=== PATIENT | male | born 1980 | race Caucasian/White ===

== ENCOUNTER 2019-06-15 16:56 | Emergency (ER) | payer OTHER, SELFPAY ==
[2019-06-15 17:20] VITALS: BP 137/80; PULSE 96; RESP 16; TEMP 36.8; O2SAT 100
--- NOTE | 2019-06-15 17:21 | ED_ITS ---
HPI - Wound/Laceration General Chief Complaint: Wound/Laceration Stated Complaint: skin abscess/left wrist History of Present Illness HPI narrative: This is a 38 year old who states that he had a ingrown hair and he pulled it . Patient states that it was hurting and swellled upp and seemed like it wanted to drain so he cut it with a knife. Patient has a past medical history of IV drug use . Related Data Home Medications Medication Instructions Recorded Confirmed buprenorphine-naloxone tablet SUBLINGUAL 06/15/19 Allergies Allergy/AdvReac Type Severity Reaction Status Date / Time No Known Allergies Allergy Unverified 12/07/13 19:56 Review of Systems Review of Systems: Narrative: CONSTITUTIONAL: Denies fever, chills, or sweats. EYES: Denies visual changes, redness, or discharge. ENT: Denies rhinorrhea, congestion, sore throat, or otalgia. CARDIOVASCULAR:Denies chest pain, palpitations, or edema. RESPIRATORY: Denies cough or dyspnea. GASTROINTESTINAL: Denies abdominal pain, nausea, vomiting, or diarrhea. GENITOURINARY: Denies dysuria or hematuria. SKIN:[Denies rash or itching. Reports swollen area and drainage left arm MUSCULOSKELETAL:Denies back pain, joint pain, or myalgia. NEUROLOGIC: Denies headache, numbness, or weakness. PSYCHIATRIC:Denies anxiety or depression PMFSH Comments At time as signature, I have reviewed and agree with nursing past medical, social, surgical and family history. Please see nursing chart for further information. There is no relevant family history pertinent to the presenting complaint. Exam 2 Narrative: Exam Narrative: GENERAL:Well-appearing, well-nourished, and in no acute distress. HEAD:Normocephalic, atraumatic. EYES: PERRLA and EOMI. ENT: Nares clear, no rhinorrhea or epistaxis. Mucous membranes moist. NECK: Supple. CHEST: Clear to auscultation. No respiratory distress. HEART: Regular rate and rhythm. No murmur heard. Normal peripheral pulses. ABDOMEN: Soft, nontender, nondistended, normal active bowel sounds. EXTREMITIES: Normal range of motion. left arm edema. abscess noted with edema and angry looking erythema with yellowish drainage noted SKIN: Warm, dry, no rash. NEURO: No focal deficits. Alert and oriented x3. MDM - Wound/Laceration MDM Narrative Medical decision making narrative: Patient is a high risk for MRSA IV drug user given two po antibiotics to ensure we are covering everything. Differential Diagnosis Differential diagnosis: Likely abscess and other Discharge Plan Discharge Clinical Impression: Cellulitis of arm, left Patient Disposition: Home, Self-Care Condition: Stable Instructions: Antibiotic Form, Cellulitis (ED), Acute Wounds (ED) Additional Instructions: Make sure that you keep the area clean and and take all the medication that is ordered for you . Prescriptions: New sulfamethoxazole-trimethoprim [Bactrim DS] 800-160 mg tablet 1 tablet PO Q12H 10 Days Qty: 20 RF: 0 amoxicillin-pot clavulanate [Augmentin] 875-125 mg tablet 1 tablet PO Q12H 10 Days Qty: 20 RF: 0 No Action buprenorphine-naloxone 8-2 mg tablet, sublingual SUBLINGUAL RF: 0 Follow-up/Referrals: UNKNOWN,DOCTOR [Primary Care Provider] - Time of Disposition: 17:39
--- NOTE | 2019-06-15 17:37 | PC.NURSE ---
wound cx obtained from left lower arm wound.
== END 2019-06-15 17:42 | disposition home or self-care (01) ==
PROVIDERS: Emergency Provider Nurse Practitioner Family
DX: L03.114 Cellulitis of left upper limb (principal)
CPT/HCPCS: 87070; 87147; 87186; 87205; 99213; G0463

== ENCOUNTER 2020-06-06 15:27 | Emergency (ER) | payer OTHER, SELFPAY ==
--- NOTE | ~2020-06-06 | XR_ITS ---
EXAMINATION: XR foot LT min 3V DATE: 06/06/2020 15:59 INDICATION: Left foot pain, initial encounter TECHNIQUE: Dorsoplantar, lateral, and 2 oblique views of the left foot were obtained. COMPARISON: None. FINDINGS: There is a lucency in either the proximal aspect of the medial cuneiform or the distal aspe ct of the navicular seen on one oblique view. No additional osseous abnormality is identified. There is dorsal soft tissue swelling of the foot. The joint spaces are maintained. IMPRESSION: 1. Lucency in either the distal navicular or proximal medial cuneiform suspicious for nondisplaced fr acture. Reviewed, dictated and finalized at location A. IMPRESSION: 1. Lucency in either the distal navicular or proximal medial cuneiform suspicio us for nondisplaced fracture.
[2020-06-06 15:47] VITALS: BP 133/80; PULSE 112; RESP 16; TEMP 36.4; O2SAT 99
--- NOTE | 2020-06-06 15:54 | ED.GENADULT ---
HPI - General Adult General Chief complaint: Wound/Laceration Stated complaint: left ankle pain/left arm infection Time Seen by Provider: 06/06/20 15:55 Source: patient Mode of arrival: ambulatory Limitations: no limitations History of Present Illness HPI narrative: 39-year-old male patient presents to the [facility] with complaints of a wound to the left arm and left foot pain. Patient states today he jumped a fence and landed flat-footed and now having pain and swelling to the left heel. Patient is coming in with crutches stating that he cannot put pressure on the foot when he walks. Denies any numbness or tingling to the toes denies any pain to the ankle, knee or hip. Patient does admit to shooting up fentanyl 3 days ago and states for the last 2 days the left AC has been red swollen and painful. Denies fevers, body aches or chills. Patient states he does admit to shooting up methamphetamines as well but nothing recently. Patient states he has been sweating lately but denies fevers, chills or body aches. Related Data Home Medications Medication Instructions Recorded Confirmed No Home Medications 06/06/20 06/06/20 Allergies Allergy/AdvReac Type Severity Reaction Status Date / Time No Known Allergies Allergy Unverified 06/06/20 15:32 Review of Systems Review of Systems: Narrative: CONSTITUTIONAL: Denies fever, chills, positive sweats. EYES: Denies visual changes, redness, or discharge. ENT: Denies rhinorrhea, congestion, sore throat, or otalgia. CARDIOVASCULAR: Denies chest pain, palpitations, or edema. RESPIRATORY: Denies cough or dyspnea. GASTROINTESTINAL: Denies abdominal pain, nausea, vomiting, or diarrhea. GENITOURINARY: Denies dysuria or hematuria. SKIN: Denies rash or itching. Positive redness/wound to left antecubital area x2 days MUSCULOSKELETAL: Denies back pain, joint pain, or myalgia. Positive left heel pain NEUROLOGIC: Denies headache, numbness, or weakness. PSYCHIATRIC: Denies anxiety or depression. [facility] Past Medical History Medical History (Updated 06/06/20 @ 16:16 by JANNETH Arriaga) Fractures Right ankle Herniated disc Opioid use Was weaned with Suboxone Substance abuse Hydrocodone Exam Narrative: Exam Narrative: GENERAL: Well-appearing, well-nourished, and in no acute distress. HEAD: Normocephalic, atraumatic. EYES: PERRLA and EOMI. ENT: Nares clear, no rhinorrhea or epistaxis. Mucous membranes moist. NECK: Supple. No lymphadenopathy CHEST: Clear to auscultation. No respiratory distress. HEART: Regular rate and rhythm. No murmur heard. Normal peripheral pulses. ABDOMEN: Soft, nontender, nondistended, normal active bowel sounds. EXTREMITIES: Patient has a scabbed over area with surrounding erythema noted to the left antecubital area. The left lower arm does have tightening of the skin, as well as edema that goes all the way to the hand. Patient has good range of motion to the hand and wrist. No erythema or warmth present to the hand. Patient does have some warmth and tenderness around the antecubital area. Radial pulses present. Patient also complaining of left heel pain. Patient does have some swelling and tenderness noted to the calcaneus area of the left heel. No tenderness to the lateral or medial malleolus. No tenderness to the toes. Patient has good DP pulses.. SKIN: Warm, dry, no rash. NEURO: No focal deficits. Alert and oriented x3. Course Reevaluation(s) Reevaluation #1: Reevaluated patient notified him that it does appear that his foot is broken according to the x-ray. We will go ahead and put him in a splint and have him follow-up with the orthopedic surgeon which I will refer him to today. He will need to call the office tomorrow to schedule a follow appointment. Discussed with patient we are going to send him to the ER to be evaluated for possible IV antibiotics for the left lower arm infection. Patient verbalized understanding of this denies any other ques
== END 2020-06-06 16:28 | disposition short-term general hospital (02) ==
PROVIDERS: Emergency Provider Nurse Practitioner Family
DX: L03.114 Cellulitis of left upper limb (principal); S92.902A Unspecified fracture of left foot, initial encounter for closed fracture; X50.9XXA Other and unspecified overexertion or strenuous movements or postures, initial encounter
CPT/HCPCS: 29515; 73630; 99213; 99214; G0463

== ENCOUNTER 2020-06-06 18:02 | Observation (INO) | payer BC, OTHER, SELFPAY ==
--- NOTE | ~2020-06-06 | CT_ITS ---
EXAMINATION: CT UE LT w con INDICATION: Left arm swelling, drug use TECHNIQUE: Computed tomographic images of the left upper extremity were obtained after the administra tion of 100 cc of Omnipaque 350 intravenous contrast. The dose-length product (DLP) was 113.48 mGy-cm . Automated exposure control and iterative reconstruction technique were employed. COMPARISON: None FINDINGS: There is soft tissue gas in the antecubital fossa. No associated rim-enhancing fluid is clay ntified. There is a large amount of subcutaneous edema of the visualized left upper extremity. Bone a lignment is normal. There is no fracture. There is an 8 mm linear metallic density in the subcutaneou s tissues of the radial aspect of the proximal forearm (axial images 33 through 37). There appears to be short segmental thrombosis of several superficial forearm veins. IMPRESSION: 1. Subcutaneous gas in the antecubital fossa without associated abscess, likely related to injection. 2. Linear metallic density in the subcutaneous tissues at the radial aspect of the proximal forearm, possible needle fragment. 3. Findings suggestive of short segmental thrombosis of several superficial forearm veins, likely seq uela of injections. 4. Diffuse cellulitis of the upper extremity. Reviewed, dictated and finalized at location A. IMPRESSION: 1. Subcutaneous gas in the antecubital fossa without associated abscess, likely related to injection. 2. Linear metallic density in the subcutaneous tissues at the radial aspect of the proximal forearm, possible needle fragment. 3. Findings suggestive of short segmental thrombosis of several superficial for earm veins, likely sequela of injections. 4. Diffuse cellulitis of the upper extremity.
[2020-06-06 18:04] VITALS: BP 146/85; PULSE 105; RESP 20; TEMP 36.7; O2SAT 100
--- NOTE | 2020-06-06 18:46 | ED.WOUNDLAC ---
HPI - Wound/Laceration General Chief Complaint: Wound/Laceration <Mason Elizalde MD - Last Filed: 06/06/20 19:07> Stated Complaint: left arm infection, left heel injury <Mason Elizalde MD - Last Filed: 06/06/20 19:07> Time Seen by Provider: 06/06/20 18:31 <Mason Elizalde MD - Last Filed: 06/06/20 19:07> Source: patient <Mason Elizalde MD - Last Filed: 06/06/20 19:07> Mode of arrival: ambulatory <Mason Elizalde MD - Last Filed: 06/06/20 19:07> Limitations: no limitations <Mason Elizalde MD - Last Filed: 06/06/20 19:07> History of Present Illness HPI narrative: 39-year-old male Habitual fentanyl/heroin user Last use was 3 or 4 days ago in his left antecubital Patient reports he did not think that he missed the vein but he has had pain swelling and redness starting about a day later and now has a draining lesion Has not had a fever although he has been told that he was sweating at night Additionally today he tried to hop over a fence and landed on his left foot and has a midfoot fracture which was found and splinted in urgent care before he was referred here <Mason Elizalde MD - Last Filed: 06/06/20 19:07> Related Data Home Medications: Home Medications Medication Instructions Recorded Confirmed No Home Medications 06/06/20 06/06/20 <Mason Elizalde MD - Last Filed: 06/06/20 19:07> Allergies/Adverse Reactions: Allergies Allergy/AdvReac Type Severity Reaction Status Date / Time No Known Allergies Allergy Unverified 06/06/20 15:32 <Mason Elizalde MD - Last Filed: 06/06/20 19:07> Review of Systems Review of Systems: All systems reviewed & are unremarkable except as noted in HPI and below <Mason Elizalde MD - Last Filed: 06/06/20 19:07> Constitutional: Constitutional: Denies chills, Denies fever(s) and Denies headache(s) <Mason Elizalde MD - Last Filed: 06/06/20 19:07> Comments: + Sweats <Mason Elizalde MD - Last Filed: 06/06/20 19:07> ENT: Denies headache(s) and Denies sore throat <Mason Elizalde MD - Last Filed: 06/06/20 19:07> Cardiovascular: Cardiovascular: Denies chest pain, Denies rapid heart rate and Denies dyspnea <Mason Elizalde MD - Last Filed: 06/06/20 19:07> Respiratory: Respiratory: Denies cough and Denies dyspnea <Mason Elizalde MD - Last Filed: 06/06/20 19:07> Gastrointestinal: Gastrointestinal: Denies abdominal pain and Denies vomiting <Mason Elizalde MD - Last Filed: 06/06/20 19:07> Musculoskeletal: Musculoskeletal: Reports myalgias, Denies deformity, Reports arthralgias, Reports joint swelling and Denies numbness <Mason Elizalde MD - Last Filed: 06/06/20 19:07> Integumentary/Breasts: Skin/Breast: Reports erythema, Reports rash and Denies wounds <Mason Elizalde MD - Last Filed: 06/06/20 19:07> Neurologic: Denies headache(s), Denies focal weakness and Denies numbness <Mason Elizalde MD - Last Filed: 06/06/20 19:07> [facility] Past Medical History Medical History: Medical History (Updated 06/06/20 @ 20:39 by Alfredo Richards DO) Fractures Right ankle Herniated disc Opioid use Was weaned with Suboxone Substance abuse Hydrocodone <Mason Elizalde MD - Last Filed: 06/06/20 19:07> Social History Social History: Social History Gender identity (if verbalized by the patient): Male <Mason Elizalde MD - Last Filed: 06/06/20 19:07> Exam Const: General: cooperative and alert <Mason Elizalde MD - Last Filed: 06/06/20 19:07> Orientation/consciousness: patient oriented x3 (alert) <Mason Elizalde MD - Last Filed: 06/06/20 19:07> HENMT: Head: normal to inspection, normocephalic and atraumatic <Mason Elizalde MD - Last Filed: 06/06/20 19:07> Ears: external ears normal <Mason Elizalde MD - Last Filed: 06/06/20 19:07> General nose exam: no epistaxis <Mason Elizalde MD - Last Filed: 06/06/20 19:07> Eyes: Conjunctivae: conjunctivae normal <Mason Elizalde MD - Last Filed: 06/06/20 19:07> EOM: EOM
[2020-06-06 19:17] LABS: Basophils Absolute Auto 0.1 K/mm3 (0.0-0.1); Basophils Percent Auto 0.3 % (0.2-1.2); Eosinophils Absolute Auto 0.2 K/mm3 (0-0.3); Eosinophils Percent Auto 1.4 % (0-4.4); Hematocrit 37.9 % (42.0-52.0); Hemoglobin 12.6 g/dL (14.0-18.0); Immature Granulocyte Absolute 0.06 K/mm3 (0.00-0.031); Immature Granulocyte Percent A 0.4 % (0-0.5); Lymphocytes Absolute Auto 2.75 K/mm3 (0.9-3.2); Lymphocytes Percent Auto 18.2 % (18.3-44.2); Mean Corpuscular HGB Conc 33.2 g/dl (32-36); Mean Corpuscular Hemoglobin 28.1 pg (26-34); Mean Corpuscular Volume 84.6 fl (80-100); Mean Platelet Volume 8.1 fl (7.4-10.4); Monocytes Absolute Auto 1.3 K/mm3 (0.1-0.6); Monocytes Percent Auto 8.3 % (2.6-8.5); Neutrophils Absolute Auto 10.8 K/mm3 (1.3-6.7); Neutrophils Percent Auto 71.4 % (45.5-73.1); Platelet Count Result 248 k/mm3 (150-375); Red Blood Count 4.48 M/mm3 (4.6-6.20); Red Cell Distribution Width 13.4 % (11.5-14.5); White Blood Count 15.1 K/mm3 (4.5-10.0)
[2020-06-06] MEDS: ONDANSETRON INJ 4 MG/2 ML VIAL IV PUSH (19:30)
--- NOTE | 2020-06-06 19:30 | PC.NURSE ---
Pt. family member runs out of room yelling [employer] He needs a nurse!!! PT. vomiting on floor ERP at bedside. VORB 4mg zofran administered IVP
[2020-06-06 19:31] LABS: Alanine Aminotransferase 53 U/L (4-50); Albumin Level 3.8 g/dL (3.5-5.1); Alkaline Phosphatase 102 U/L (38-126); Anion Gap 5 mmol/L (8-16); Aspartate Amino Transferase 39 U/L (17-59); Bilirubin,Total 0.7 mg/dL (0.2-1.3); Blood Urea Nitrogen 8 mg/dL (9-20); CRP 8.6 mg/dL (<1.0); Calcium 8.4 mg/dL (8.4-10.2); Carbon Dioxide 26 mmol/L (22-30); Chloride 104 mmol/L (98-107); Creatine Kinase 58 U/L (55-170); Estimated CRCL calculation 141 ml/min; Estimated Glomerular Filt Rate > 60; Glucose 120 mg/dL (75-110); Potassium 3.9 mmol/L (3.4-5.0); Sodium 135 mmol/L (137-145)
[2020-06-06 19:42] VITALS: BP 143/78; PULSE 94; RESP 18; O2SAT 97
[2020-06-06 19:51] LABS: Erythrocyte Sedimentation Rate 24 mm/hr (0-20)
[2020-06-06] MEDS: SODIUM CHLORIDE 0.9% IV 1,000 ML 999 ML IV CONT (20:04)
[2020-06-06 20:28] LABS: Lactic Acid Reflex 1.7 mmol/L (0.7-2.1)
--- NOTE | 2020-06-06 20:43 | PC.NURSE ---
abscess with purulent white drainage to left a/c. wound culture obtained and sent to lab as ordered. pt resting in stretcher without s/s of distress.
[2020-06-06 21:02] VITALS: BP 146/102; PULSE 96; RESP 18; O2SAT 98
--- NOTE | 2020-06-06 22:14 | PC.NURSE ---
patient requested we allow a sleepover .. I told him absolutely not and he asked for AMA papers. He signed them at 22:03 and was only on our floor for <5min. His IV was removed prior to him leaving. -ANASTACIA GARCIA
--- NOTE | 2020-06-06 22:42 | PM.EVENT ---
Event Note Event Note Event Note: The patient signed out ama before i was able to see the patient. DID NOT SEE
== END 2020-06-06 22:03 ==
LOC: ANHED 20:39 → ANH3MEDSUR 21:02
PROVIDERS: Emergency Medicine; Admitting Provider Internal Medicine; Emergency Provider Emergency Medicine; Visit Provider Internal Medicine
DX: A41.9 Sepsis, unspecified organism (principal); L03.114 Cellulitis of left upper limb; F11.10 Opioid abuse, uncomplicated; S92.902A Unspecified fracture of left foot, initial encounter for closed fracture; X50.0XXA Overexertion from strenuous movement or load, initial encounter; Y93.39 Activity, other involving climbing, rappelling and jumping off; Z53.29 Procedure and treatment not carried out because of patient's decision for other reasons
CPT/HCPCS: 36415; 73201; 73630; 80053; 82550; 83605; 85025; 85652; 86140; 87040; 87070; 87075; 87147; 87186; 87205; 96365; 96375; 99285; G0378; G0379; J2405; J3370; J7030; Q9967